=== PATIENT | female | born 1930 | race Caucasian/White ===

== ENCOUNTER 2016-09-16 18:57 | Inpatient (IN) | payer MEDICARE, OTHER ==
[~2016-09-16] VITALS: Ht 160 cm; Wt 43.6 kg
[~2016-09-16 18:57] MED LIST: DICLOFENAC 50MG50 MG PO; PYRIDOSTIGMINE60 MG PO
[2016-09-16 18:59] VITALS: BP 135/86
--- NOTE | 2016-09-16 19:09 | Emergency Room Report ---
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 N Clinical Suspician of Infection? N Mental Status: 1 - Regular (Normal Baseline) Sepsis Risk:Low Sepsis Risk Have you (or family members/close friends) recently traveled outside the [place]? N If Yes, where/when: Have you had exposure to infectious disease within the past month? TB? Other? Specify: Source patient, RN notes reviewed, family, old records Exam Limitations no limitations Comment This is an 86-year-old female who presents to the emergency department for further evaluation of RIGHT hip pain. She was seen in the ED earlier today after a mechanical ground-level fall with an x-ray of the pelvis and RIGHT hip. X-ray initially appeared negative per my read, but was read by radiology as possible subcapital femoral neck fracture and radiologist recommended CT for further evaluation. Patient was called back and presents here for CT scan. Patient continues to complain of RIGHT hip pain, but has been ambulatory. ALLERGIES Coded Allergies: No Known Allergies (09/16/16) Home Medications Reported Medications Pyridostigmine [place] (Pyridostigmine) 60 MG PO TID DICLOFENAC SODIUM (Diclofenac 50MG) 50 MG PO PRN PRN NEEDED WEEKLY (Gray Sawyer MD) History Medical History General CAD? No Angina: No MA: Yes Hypertension? Yes Hyperlipidemia? Yes CHF? No DVT? No PE? No COPD? No Asthma? No Anemia? No GERD? No Gastric ulcers? No GI Bleed? No Hernia? No Thyroid Problems? No Hypothyroidism? No CVA? No Seizures? No Diabetes? No More? Yes Additional hx: MYASTHENIA GRAVIS Immunization Hx Ped.Immunizations UTD Yes DT/Tetanus 5-10 Years Ago Surgical Hx Previous Surgery? LEFT hip replacement Social History Smoking Hx Smoker: Never Smoker Tobacco: No Type N/A Are you/the child exposed to second-hand smoke: No (Gray Sawyer MD) Review of Systems All Other Systems Reviewed and Negative (Gray Sawyer MD) Physical Exam Vital Signs Vital Signs Date Time Temp Pulse Resp B/P Pulse O2 O2 Flow FiO2 Ox Delivery Rate 09/16 2013 79 16 136/65 97 09/16 1858 98.0 77 18 135/86 98 General Appearance normal appearance, WD/WN Neck normal inspection, non-tender, supple, full range of motion Respiratory Status Yes: chest symmetrical, non tender chest. No: respiratory distress. Lung Sounds bilateral: normal breath sounds, lungs clear. Cardiovascular normal exam, regular rate/rhythm, no peripheral edema, normal peripheral pulses Peripheral Pulses Pulses normal Yes Gastrointestinal normal bowel sounds, normal exam, non tender Back normal inspection, no CVA tenderness, no vertebral tenderness Extremities normal inspection, RLE: painful range of motion at the RIGHT hip, mild tenderness on palpation, sensation intact distally with 2+ DP and PT pulses Neurologic alert, no motor/sensory deficits, oriented x 3 Skin intact, normal color, warm/dry (Silverio MORRIS [place]) Medical Decision Making LABS/Meds/Orders Pt receiving controlled substance in ED? No Results/Orders Current Medication Orders Sig/Octavia Start time Last Medication Dose Route Stop Time Status Admin Sodium Chloride 10 ML PRN PRN 09/16 2044 AC IV 09/17 2037 Orders Procedure Date/time Status DIET-NOTHING BY MOUTH 09/17 B Active Decision to admit 09/17 2039 Active ELECTROCARDIOGRAM REQUEST 09/16 2038 Active CHEST-PORTABLE 09/16 2038 Active IV SALINE LOCK 09/16 2038 Active URINALYSIS/COMPLETE 09/16 2038 Active PROTHROMBIN TIME 09/16 2038 Complete COMPLETE METABOLIC PANEL 09/16 2038 Complete CBC WITH AUTO DIFF 09/16 2038 Complete FOREARM-RT 09/[address] PELVIS W/O CONTRAST 09/[address] ABD/PELVIS REQ 09/16 1858 Complete XRAY/CT/US XRAY/CT/US XRAY forearm XR interpretation by reviewed by me Xray Results no fracture seen (Silverio MORRIS [place]) XRAY/CT/US XRAY/CT/US CT hip CT interpretation by discussed w/radiologist Time results known: 2033 CT Results abnormal (see report) (Tere MORRIS,Antonio Andre) Departure Departure Disposition Still a Patient ED Critical Care Critical Care No Comments Patient later complains of forearm pain while in CT scan so forearm x-rays obtained and does not show any acute fracture per my read. She was complaining of mid to proximal forearm pain but there are no obvious fractures on the x-ray per my read, radiology over read pending. CT scan of the pelvis is obtained without contrast and read is pending. Patient care transferred to Dr. Carranza at 1999. (Gray Sawyer MD) Departure Time of Disposition 2033 Clinical Impression Primary Impression: Right hip pain Secondary Impressions: Hip fracture, right Qualifiers: Encounter type: initial encounter Fracture type: closed Qualified Code: S72.001A - Fracture of unspecified part of neck of right femur, initial encounter for closed fracture Myasthenia gravis Right forearm pain Condition STABLE Referrals Wai Barrientos MD discussed with dr barrientos (Antonio Carranza MD) at 1954 at 2139
[2016-09-16 21:15] LABS: HEMOGLOBIN 11.6 g/dL (12.2-16.2); LYMPH # 1.2 K/mm3 (0.7-4.5); LYMPH % 20.3 % (10-50.0)
--- NOTE | 2016-09-16 22:03 | PHARMACY CLINIC NOTE ---
See Addendum Patient Demographics Patient Demographics Admission date: 09/16/16 Date: 09/16/16 Time: 2201 Allergies Coded Allergies: No Known Allergies (09/16/16) HEIGHT- FT: 5 IN: 3.00 K.164 VTE General Information Labs: Laboratory Tests 09/16 2105 Coagulation PT (9.4 - 11.8 SECONDS) 10.7 INR (0.9 - 1.1) 1.00 Hematology Hgb (12.2 - 16.2 g/dL) 11.6 L Hct (37.0 - 47.0 %) 35.1 L Plt Count (142 - 424 K/mm3) 217 Disclaimer The following section includes nursing documentation that has been pulled in for pharmacy review. Clinical trial participant? No VTE prophylaxis [id number] VTE prophylaxis ordered? Yes Type of prophylaxis/treatment: GARCÍA at 2203
--- NOTE | 2016-09-16 23:00 | RADIOLOGY REPORT PS360 ---
CT PELVIS W/O CONTRAST Ordering Physician: Wai South MD Patient Age: 86 years: Female HISTORY: RIGHT HIP PAIN AFTER FALL TECHNIQUE: Helical CT scanning performed through the pelvis, right hip. From the axial acquisitions coronal and sagittal reconstruction images performed on CT workstation. Findings [facility] report seems to equivocate, but I believe there is a acute Impacted subcapital right femoral neck fracture present. On close inspection we see mild cortical disruption cortex on several images. Posterior Cortex seen disruption on axial image 74.. On coronal image 42 there seems to be disruption of the medial cortex. Disruption lateral cortex with overhanging margin is seen on several images. These features support acute fracture... This does require correlation with history. A subacute or older fracture with healing entertained but much less likely... If there is question based on clinical history then MR could additionally confirm acute fracture , if need be. The Mild sclerosis along this subtle impacted fracture line is also evident nicely seen on some of images.. . joint effusion also noted and associated. Moderately Pronounced Arthritic changes right hip noted. Marked narrowing at posterior right hip joint space reflecting advanced arthritic changes. Hypertrophic marginal osteophytes most pronounced along the posterior acetabulum, & most pronounced posteriorly but also note hypertrophic acetabular rim extending superiorly & as well as anterior. It There is some mild dystrophic bone anterior to the femoral head at the anterior joint joint capsule on axial image 69-66. . On also note there is posterior fusion at L5/S1 with laminectomy. Marked disc space narrowing at L4/5. Partially imaged most superior slicesat L2/3 disc level shows pronounced lateral offset of L2 vertebra and posterior elements relative to L3. If desire further evaluation CT, or MRI lumbar spine or to further evaluate features at L 2/3 level at some point a follow-up. ... Diffuse demineralization osseous structures... Sacrum osteoporotic but with no fracture evident . A small collection of stones posterior gallbladder is still noted. Minimal cholelithiasis. IMPRESSION: 1. Impacted subcapital right femoral neck fracture... Favor Acute (rather than subacute.) 2. Right hip joint effusion 3. Moderately pronounced Degenerative arthritic changes right hip as in text 4. Posterior fusion L5/S1. Prominent degenerative arthritic changes lower L-spine . With this there seems to be pronounced right lateral offset of L2 relative to L3. 5 incidental minimal cholelithiasis
[2016-09-16 23:16] VITALS: BP 150/79
[2016-09-17] VITALS (15 sets, daily range): BP systolic 143–194; BP diastolic 71–99
[2016-09-17 07:12] LABS: HEMOGLOBIN 12.1 g/dL (12.2-16.2); LYMPH # 0.9 K/mm3 (0.7-4.5); LYMPH % 19.6 % (10-50.0)
--- NOTE | 2016-09-17 07:20 | RADIOLOGY REPORT PS360 ---
CHEST-PORTABLE HISTORY: Pain following injury fall ORDERING PHYSICIAN: Wai South MD PATIENT AGE: 86 years COMPARISON: None available FINDINGS: The cardiomediastinal silhouette and pulmonary vascularity are within normal limits. No lobar consolidation or collapse is evident. Calcified granulomas noted in the right lower lungs on. No evidence of pneumothorax. Skin fold artifact noted on the left.. No acute bony abnormalities. IMPRESSION: No acute finding
--- NOTE | 2016-09-17 07:23 | RADIOLOGY REPORT PS360 ---
FOREARM-RT HISTORY: Pain following injury PT FELL, RIGHT PROXIMAL FOREARM PAIN ORDERING PHYSICIAN: Gray Sawyer MD PATIENT AGE: 86 years COMPARISON: None FINDINGS: No definite fracture or dislocation is evident. There is some cortical irregularity at the radial head and may be related to an osteophyte. Elbow films may confirm if this is a clinical area of concern. There is also some cortical lobulation of the distal aspect of the radius which could be due to an old injury. Please correlate clinically. There is chondrocalcinosis of the triangular fibrocartilage. IMPRESSION: No definite acute finding. Please see above for detail
--- NOTE | 2016-09-17 07:31 | HISTORY AND PHYSICAL REPORT ---
Demographics: Admit date: 09/16/16 Chief complaint: RIGHT hip pain PRIMARY DIAGNOSIS: RIGHT HIP PAIN Allergies: Coded Allergies: No Known Allergies (09/16/16) History of present illness: History of present illness: 86-year-old female presented to the emergency department yesterday after a fall at home where she landed on her RIGHT side. Patient complained of RIGHT hip pain and RIGHT shoulder pain. She came to the emergency department and was evaluated. Initial x-rays were thought to be normal and patient was discharged home once she was able to ambulate with use of walker. Patient has chronic RIGHT shoulder problems from previous rotator cuff injury. On radiologist's review of the hip films it was felt there was a subcapital hip fracture and the patient was called back to the emergency department for repeat films with a CT scan of the RIGHT hip. CT scan of the RIGHT hip was read by the overnight teleradiology service as a possible fracture. Patient was admitted for orthopedic consult. This morning she continues to have RIGHT hip pain. The [facility] radiologist has are he reviewed her films this morning and is interpreted her CT scan confirming a fracture in the RIGHT hip. Past medical history is significant for previous LEFT hip fracture which she had repaired. Patient also has myasthenia gravis. She has had an episode of respiratory failure from her myasthenia gravis. She takes Pyridostigmine 60 mg once daily which is kept her myasthenia under excellent control. Past medical history: Family HX Family Hx Insignificant No Diabetes Yes CAD No Hypertension Yes Hyperlipidemia No Cancer No TB No Immunization HX Ped.Immunizations UTD Yes DT/Tetanus 5-10 Years Ago Pneumonia Received In Past TB Test in last year No General CAD? No Angina: No CO: Yes Hypertension? Yes Hyperlipidemia? Yes CHF? No DVT? No PE? No COPD? No Asthma? No Anemia? No GERD? No Gastric ulcers? No GI Bleed? No Hernia? No Thyroid Problems? No Hypothyroidism? No CVA? No Seizures? No Diabetes? No More? Yes Additional hx: MYASTHENIA GRAVIS Past Surgical HX Previous Surgery?Y LEFT HIP FX REPAIR COLON RESECTION HERNIA REPAIR HYSTERECTOMY Cataract(s) SPINAL FUSION SLEEP APNEA SURGERY Current home meds: Reported Medications Pyridostigmine [place] (Pyridostigmine) 60 MG PO TID DICLOFENAC SODIUM (Diclofenac 50MG) 50 MG PO PRN PRN NEEDED WEEKLY Social Hx: Smoking HX Tobacco No Type N/A Are you/the child exposed to second-hand smoke: No Alcohol Alcohol: No Hx of Drug Use Drug Use? No Patien't marital status is Patient's support system is good Review of systems: Constitutional no symptoms reported. Respiratory no symptoms reported. Cardiovascular no symptoms reported Gastrointestinal/Abdominal no symptoms reported Genitourinary no symptoms reported. Musculoskeletal see HPI. Neurological Yes: see HPI. Exam: Lab data for last 24 hours: Laboratory Tests 09/17/16 0630: Sodium 144, Potassium 3.9, Chloride 111 H, Carbon Dioxide 28, BUN 22 H, Creatinine 0.7, Estimated Creat Clear 40 L, Estimated GFR (MDRD) 80, Glucose 92 , Calcium 8.6, WBC 4.3 L, RBC 3.90 L, Hgb 12.1 L, Hct 36.4 L, MCV 93.5, RDW 14.2, Plt Count 212, MPV 6.4 L, Gran % 69.8, Gran # 3.0, Lymphocytes % 19.6, Monocytes % 6.2, Eosinophils % 3.6, Basophils % 0.8, Lymphocytes # 0.9, Monocytes # 0.3, Eosinophils # 0.2, Basophils # 0.0, PUBS MCHC 33.1, MCH 30.9 09/16/16 2106: Sodium 143, Potassium 4.1, Chloride 109 H, Carbon Dioxide 28, BUN 32 H, Creatinine 0.9, Estimated Creat Clear 38 L, Estimated GFR (MDRD) 60, Glucose 143 H, Calcium 8.8, Total Bilirubin 0.5, AST 20, ALT 37, Alkaline Phosphatase 74, Total Protein 6.7, Albumin 3.4, Globulin 3.3 H, Albumin/Globulin Ratio 1.0 L, PT 10.7, INR 1.00, WBC 6.0, RBC 3.79 L, Hgb 11.6 L, Hct 35.1 L, MCV 92.7, RDW 14.2, Plt Count 217, MPV 6.6 L, Gran % 72.4, Gran # 4.4, Lymphocytes % 20.3 , Monocytes % 4.9, Eosinophils % 1.8, Basophils % 0.7, Lymphocytes # 1.2, Monocytes # 0.3, Eosinophils # 0.1, Basophils # 0.0, PUBS MCHC 33.1, MCH 30.6 Admission vital signs: 1ST Vital Signs Result Date Time Pulse Ox 98 09/16 1858 B/P 135/86 09/16 1858 Temp 98.0 09/16 1858 Pulse 77 09/16 1858 Resp 18 09/16 1858 O2 Delivery ROOM AIR 09/16 2316 Exam General appearance: alert, active, awake Cardiovascular: regular rate & rhythm, no murmur Respiratory: clear to auscultation, good air movement ABD: soft, no tenderness Extremities: RIGHT leg is neurovascularly intact Plan: Problem List 1. Hip fracture, right 2. Myasthenia gravis Plan: Await orthopedic consultation. Should patient need surgery they can proceed at orthopedists convenience. at 0731
--- NOTE | 2016-09-17 10:18 | CONSULT NOTE ---
Consultation findings: Referring physician: Dr. South Date of examination: 09/17/16 Time of examination: 0900 Exam findings: Chief complaint: RIGHT hip pain History of present illness: Patient is a pleasant 86-year-old female admitted from the ER yesterday evening with history of injury to her RIGHT hip. She says she fell down onto her RIGHT side while trying to open a door at home yesterday. Following the fall she complained of pain in her RIGHT hip and RIGHT shoulder. When she presented to the ER yesterday, the initial x-rays were thought to be normal and patient was discharged home once she was able to ambulate with a walker. On radiologist's review of the hip films it was felt there was a subcapital hip fracture and the patient was called back to the emergency department for a CT scan of the RIGHT hip. The CT scan did confirm a definite acute valgus impacted fracture neck of her RIGHT femur. She was then admitted for further management. This morning she is still complaining of pain in her RIGHT hip especially with any attempted movements. She is also complaining of some RIGHT shoulder pain. During examination today her [id number] who works as a dietitian at the hospital was with her. 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 She uses a walker and mainly mobilizes indoors. She has history of chronic RIGHT shoulder pain secondary to rotator cuff tear and arthritis. She previously had a LEFT hip fracture and had a hemiarthroplasty about 14 or 15 years ago at an outside facility. She also had a low back surgery about 6 years ago. No history of any other injuries. No history of any loss of consciousness, head injury, neck pain, chest pain and shortness of breath. Past medical history is significant for myasthenia gravis. She has had an episode of respiratory failure from her myasthenia gravis. She takes Pyridostigmine 60 mg once daily which is kept her myasthenia under excellent control. Past medical history: Family HX Family Hx Insignificant No Diabetes Yes CAD No Hypertension Yes Hyperlipidemia No Cancer No TB No Immunization HX Ped.Immunizations UTD Yes DT/Tetanus 5-10 Years Ago Pneumonia Received In Past TB Test in last year No General CAD? No Angina: No ID: Yes Hypertension? Yes Hyperlipidemia? Yes CHF? No DVT? No PE? No COPD? No Asthma? No Anemia? No GERD? No Gastric ulcers? No GI Bleed? No Hernia? No Thyroid Problems? No Hypothyroidism? No CVA? No Seizures? No Diabetes? No More? Yes Additional hx: MYASTHENIA GRAVIS Past Surgical HX Previous Surgery?Y LEFT HIP FX REPAIR COLON RESECTION HERNIA REPAIR HYSTERECTOMY Cataract(s) SPINAL FUSION SLEEP APNEA SURGERY Current home meds: Reported Medications Pyridostigmine [place] (Pyridostigmine) 60 MG PO TID DICLOFENAC SODIUM (Diclofenac 50MG) 50 MG PO PRN PRN NEEDED WEEKLY Social Hx: Smoking HX Tobacco No Type N/A Are you/the child exposed to second-hand smoke: No Alcohol Alcohol: No Hx of Drug Use Drug Use? No Patien't marital status is Patient's support system is good Review of systems: Constitutional no symptoms reported. Respiratory no symptoms reported. Cardiovascular no symptoms reported Gastrointestinal/Abdominal no symptoms reported Genitourinary no symptoms reported. Musculoskeletal see HPI. Neurological Yes: see HPI. Exam: Lab data for last 24 hours: Laboratory Tests 09/17/16 0630: Sodium 144, Potassium 3.9, Chloride 111 H, Carbon Dioxide 28, BUN 22 H, Creatinine 0.7, Estimated Creat Clear 40 L, Estimated GFR (MDRD) 80, Glucose 92 , Calcium 8.6, WBC 4.3 L, RBC 3.90 L, Hgb 12.1 L, Hct 36.4 L, MCV 93.5, RDW 14.2, Plt Count 212, MPV 6.4 L, Gran % 69.8, Gran # 3.0, Lymphocytes % 19.6, Monocytes % 6.2, Eosinophils % 3.6, Basophils % 0.8, Lymphocytes # 0.9, Monocytes # 0.3, Eosinophils # 0.2, Basophils # 0.0, PUBS MCHC 33.1, MCH 30.9 09/16/16 2106: Sodium 143, Potassium 4.1, Chloride 109 H, Carbon Dioxide 28, BUN 32 H, Creatinine 0.9, Estimated Creat Clear 38 L, Estimated GFR (MDRD) 60, Glucose 143 H, Calcium 8.8, Total Bilirubin 0.5, AST 20, ALT 37, Alkaline Phosphatase 74, Total Protein 6.7, Albumin 3.4, Globulin 3.3 H, Albumin/Globulin Ratio 1.0 L, PT 10.7, INR 1.00, WBC 6.0, RBC 3.79 L, Hgb 11.6 L, Hct 35.1 L, MCV 92.7, RDW 14.2, Plt Count 217, MPV 6.6 L, Gran % 72.4, Gran # 4.4, Lymphocytes % 20.3 , Monocytes % 4.9, Eosinophils % 1.8, Basophils % 0.7, Lymphocytes # 1.2, Monocytes # 0.3, Eosinophils # 0.1, Basophils # 0.0, PUBS MCHC 33.1, MCH 30.6 Admission vital signs: 1ST Vital Signs Result Date Time Pulse Ox 98 09/16 1858 B/P 135/86 09/16 1858 Temp 98.0 09/16 1858 Pulse 77 09/16 1858 Resp 18 09/16 1858 O2 Delivery ROOM AIR 09/17 2315 Exam General appearance: alert, active, awake Cardiovascular: regular rate & rhythm, no murmur Respiratory: clear to auscultation, good air movement ABD: soft, no tenderness, no organomegaly, bowel sounds heard over 4 quadrants Neuro: Alert and oriented 3, cranial nerves II through XII grossly intact Skin: No rashes or lesions noted Extremities: On examination of her lower extremities, the limb lengths are equal. The alignment is neutral. On examination of the RIGHT hip the skin is intact. No lacerations, abrasions, rashes or lesions noted. She is tender over the RIGHT hip both anteriorly and posteriorly. Any attempted movements of the RIGHT hip are painful. Thigh and calf are soft and nontender. Dorsalis pedis and posterior tibial pulses are palpable 2+ bilaterally. Sensation is grossly intact. She has good range of knee, foot, ankle and toe movements. Examination of her LEFT hip reveals a well-healed surgical scar over the lateral aspect. On examination of her RIGHT shoulder, she has periscapular muscle atrophy, tenderness over the glenohumeral joint, and decreased range of motion of shoulder movements and crepitation. Distal neurovascular status is intact. Imaging: X-rays of her pelvis and RIGHT hip and CT scan of the pelvis were reviewed along with the radiologist's report. The images show valgus impacted subcapital femoral neck fracture on the RIGHT side. The hip joint space is slightly narrowed with mild degenerative changes. No other acute changes noted. There is a degree of osteopenia noted. No evidence of any metastatic lesions on the x-ray. X-rays of her RIGHT shoulder revealed degenerative changes consistent with rotator cuff arthropathy. No acute changes noted. X-ray of her RIGHT forearm including elbow and wrist joints shows no acute changes. There is evidence of degenerative changes in the wrist and elbow joints. Impression: 1. Valgus impacted subcapital femoral neck fracture, RIGHT hip 2. Myasthenia gravis Recommendations: I reviewed the clinical and x-ray findings with the patient and her daughter-in- law who was with her in the room. I have discussed the diagnosis and management options in detail including both nonsurgical and surgical. We discussed the surgical options in the form of either cannulated hip screw fixation or bipolar hemiarthroplasty. We discussed the pros and cons of both these options. Given the fracture appears to be stable with valgus impaction and she has fairly good range of motion hip movements, I have recommended a cannulated hip screw fixation. We discussed the possibility of nonunion, avascular necrosis, loss of fixation on the likely need for further surgery in future if we elect this option. I explained the procedure, risks and benefits, alternatives and the expected postoperative course. I explained to the patient and her boyfriend with drawings/copies of the x-ray images of the fracture and the proposed surgical procedure. The complications discussed include but are not limited to infection, injury to nerves and blood vessels, DVT and PE, femur fracture, limb length inequality, implant failure, nonunion, malunion, avascular necrosis, loss of fixation, heterotopic ossification, incomplete relief of pain, incomplete return of function or motion, likely need for further surgery in future including conversion to a luis-or total hip arthroplasty, anesthetic/medical complications including heart attack, stroke, transfusion reactions and even . We discussed how any of these events can be devastating. We have discussed nonsurgical alternatives as well which would involve likely prolonged bed rest and associated complications with it. I have told her that the usual standard of care throughout the country for these sort of fractures is surgery and these are very rarely treated nonoperatively. We also discussed the postoperative course including the rehab and physical therapy required. She lives with her daughter- in-law and may likely need to go to a residential facility for rehab after surgery. All their questions were answered and they verbalized a good understanding. We will obtain a preoperative anesthetic evaluation. The limb was appropriately marked and initialed by me. I am planning to take her for surgery at the earliest opportunity today. Thank you for the opportunity to take part in the care of this very pleasant patient.
[2016-09-17 10:47] LABS: URINE BILIRUBIN - DIPSTICK NEGATIVE (NEG); URINE BLOOD TRACE-INTACT (NEG)
--- NOTE | 2016-09-17 16:48 | Operative Note ---
Procedure/Operative Record Date of Procedure: 09/17/16 Referring physician: Dr. South Pre-op diagnosis: Closed, valgus impacted subcapital fracture neck of femur, RIGHT hip Post-op diagnosis: Closed, valgus impacted subcapital fracture neck of femur, RIGHT hip Procedure performed: Cannulated hip screw fixation, RIGHT hip Surgeon: BERTIN DIA MD Desizing Pad Operator(s): Alba Sauceda Anesthesia: General Indications: Patient is an 86-year-old female who sustained a closed valgus impacted fracture neck of her RIGHT femur following a mechanical fall. Internal fixation with cannulated hip screws was indicated to relieve pain and restore function. Findings: Closed nondisplaced valgus impacted femoral neck fracture RIGHT hip as noted on the preoperative hip x-rays. The proximal femur bone quality was reasonably good. Description of procedure: On the day of the procedure the patient was met on the floor, and a physical examination was performed. The operating side and site were marked and initialed by me. I reviewed the clinical and x-ray findings with the patient and her family. I have discussed the diagnosis and management options in detail including both nonsurgical and surgical. We discussed the surgical options in the form of either cannulated hip screw fixation or hemiarthroplasty. We discussed the pros and cons of both the procedures. Given that the fracture appears to be stable with valgus impaction and she has fairly good range of hip movements, I have recommended a cannulated hip screw fixation. We discussed the possibility of nonunion, avascular necrosis, loss of fixation and the likely need for further surgery in future if we elect this option. I explained the procedure, risks and benefits, alternatives and the expected postoperative course. I explained with drawings and x-ray pictures of the fracture and the proposed surgical procedure. The complications discussed include but are not limited to infection, injury to nerves and blood vessels, DVT and PE, femur fracture, limb length inequality, implant failure, nonunion, malunion, avascular necrosis, loss of fixation, heterotopic ossification, incomplete relief of pain, incomplete return of function or motion, likely need for further surgery in future including conversion to a luis-or total hip arthroplasty, anesthetic/ medical complications including heart attack, stroke, transfusion reactions and even . We discussed how any of these events can be devastating. We have discussed nonsurgical alternatives as well. We also discussed the postoperative course including the rehab and physical therapy required. All their questions were answered and they verbalized a good understanding. The consent form was reviewed and signed. Following appropriate preoperative workup and medical clearance, patient was brought to the operating room and a general anesthesia was administered. She was then positioned supine on the fracture table and all the bony prominences were appropriately padded. The RIGHT foot was secured in the footplate and the footplate was attached to the fracture table. The LEFT leg was placed out of the way in a leg nelson. Under fluoroscopic guidance the fracture was visualized and noted to be still holding good in valgus impaction with no change in position compared to the preoperative x-rays. The RIGHT hip and thigh were then prepped and draped in the usual sterile fashion. Administration of prophylactic antibiotics was confirmed with the anesthetic team (2 g of IV Ancef was administered). A preprocedure timeout was performed as per the hospital protocol. After marking the level of the greater trochanter on the skin and the proposed screw trajectory under fluoroscopy, a lateral skin incision was made for the approach to the proximal femur. The dissection was then carried through subcutaneous tissue. The fascia octavio and vastus lateralis were split in line with the skin incision. This provided access to the lateral aspect of the proximal femur. Under fluoroscopic guidance a guidewire was placed starting just above the level of the lesser trochanter and directed into the femoral head. After confirming satisfactory position of this guidewire under fluoroscopic imaging, two more parallel guidewires were placed proximally in an inverted triangular fashion using the multi-guidewire placing tool. After confirming satisfactory placement of all 3 guidewires in both AP and lateral planes, the lengths were measured and appropriate screws were selected. The outer cortex was drilled over the guidewires. Then three 6.5 mm (16 mm thread) cannulated screws (2 of them with washers) were placed over the guidewires and advanced into the femoral head to the appropriate level. The guidewires were then removed and fluoroscopic images were obtained showing satisfactory and stable fixation of the fracture. Fluoroscopic images were stored digitally. The wound was washed out with normal saline and hemostasis was obtained with the diathermy cautery. The wound was then closed in layers with the 2-0 Vicryl, 2-0 Vicryl and subcuticular 4-0 Monocryl sutures, Dermabond and Steri-Strips to the skin. 20 mL of 0.5 percent Marcaine was injected into the skin and subcutaneous tissue around the incision for postoperative pain relief. Sterile dressings were applied. The RIGHT foot was taken out of the foot nelson and the LEFT leg out of the leg nelson and placed on the table extension. The limb lengths were noted to be equal and there was no rotational malalignment. Dorsalis pedis and posterior tibial pulses were 2+ on both sides. At the end of the procedure, swab, needle and instrument counts were correct according to the scrub team. Patient was then transferred onto the bed. She was then transported to the PACU in a stable condition. Patient tolerated the procedure well and there were no immediate complications. Portable x-rays of her RIGHT hip AP and cross-table lateral views were obtained in the PACU and were noted to be satisfactory. Postoperatively she will have 2 further doses of prophylactic antibiotics, DVT prophylaxis as per protocol and IV and oral analgesia as needed. Medical management as per Dr. South's team. She can be mobilized on the first postoperative day with a frame, weight bearing on the RIGHT side as tolerated. EBL (ml): 50 Implant: Synthes 6.5 mm cannulated hip screws 3 (2 with washers and one without a washer )- 85 mm, 85 mm and 85 mm. Complications: None Specimens: None
--- NOTE | 2016-09-17 17:01 | RADIOLOGY REPORT PS360 ---
HIP RT 2-3V W/PELVIS IF PERFOR HISTORY: Follow-up fracture/ORIF S/P CANNULATED SCREW FIXATION RIGHT HIP ORDERING PHYSICIAN: Wai South MD PATIENT AGE: 86 years COMPARISON: 09/16/2016 FINDINGS: 3 screws have been placed into the right femoral neck from the base of the greater trochanter to the femoral head stabilizing the femoral neck fracture with good alignment with minimal impaction of the fracture fragments. Postsurgical gas is noted. IMPRESSION: Status post ORIF right femoral neck fracture with good alignment
[2016-09-18] VITALS (8 sets, daily range): BP systolic 105–150; BP diastolic 51–74
[2016-09-18 06:32] LABS: HEMOGLOBIN 12.2 g/dL (12.2-16.2); LYMPH # 0.6 K/mm3 (0.7-4.5); LYMPH % 10.3 % (10-50.0)
--- NOTE | 2016-09-18 07:24 | ACUTE CARE PROGRESS NOTE (QUA) ---
Progress Notes Subjective Date 09/18/16 Time 0721 Note Patient had surgery yesterday afternoon. She's had some bouts of nausea overnight and currently this morning during the interview. Her pain is tolerable and is responded to morphine when it escalates. She does not appear ill. Lungs are clear to auscultation. Heart has regular rate and rhythm. Abdomen is soft and nontender. Continue postoperative care. Give when necessary Phenergan for nausea and morphine for pain. Care management we'll talk with family about preferred nursing home facilities Objective Findings Last VS-Temp:98.0 B/P:110/59 Pulse:74 Resp:18 SaO2:92 ROOM AIR Last weight lbs:96 oz:2 K.602 Method:Bed Scales Assessment/Plan Problem List 1. Hip fracture, right Qualifiers: Encounter type: initial encounter Fracture type: closed Qualified Code: S72.001A - Fracture of unspecified part of neck of right femur, initial encounter for closed fracture 2. Myasthenia gravis Patient condition Stable Plan: continue current care This inpt stay is expected to cross 2 MNs from start of care Yes at 0723
--- NOTE | 2016-09-18 08:09 | RADIOLOGY REPORT PS360 ---
HIP RT 2-3V W/PELVIS IF PERFOR HISTORY: RIGHT HIP PINNING ORDERING PHYSICIAN: Wai South MD PATIENT AGE: 86 years COMPARISON: None FINDINGS: Status post placement of 3 pins into the right hip stabilizing a femoral neck fracture with minimal lateral angulation of the distal fracture fragment and no significant displacement. IMPRESSION: Status post ORIF right hip
--- NOTE | 2016-09-18 15:52 | ACUTE CARE PROGRESS NOTE ---
Progress note Date: 09/18/16 Assessment: Mariah Del Angel is an 86-year-old female, status post cannulated screw fixation RIGHT hip post op day # 1. She is sitting up in the bed and eating her lunch. She says she is doing well and her pain is well controlled with medication. She mobilized with a walker earlier with the help of physical therapist and it went well. She says she she had nausea clear but this has improved with medication and she is able to irrigate and drinking well. No history of any fevers, chills or rigors. No history of any nausea, vomiting, chest pain or SOB. The nursing staff reports no concerns about her progress. She is being evaluated for placement in a halfway facility for rehab. Her [id number] was with her in the room. Objective: I reviewed her vital signs, lab results, medication, medical progress note and also discussed with the nursing staff. Exam General appearance: alert, active, awake, no acute distress Cardiovascular: normal sinus rhythm, regular rate & rhythm Respiratory: aerating well, clear to auscultation ABD: normal bowel sounds, soft, no tenderness Neuro: alert, awake, speech clear On examination of her RIGHT lower extremity, the limb lengths are equal. The alignment is neutral. The dressings over the RIGHT hip are dry and intact. Bilateral thigh and calf are soft and nontender. Distal neurovascular status is intact. No clinical evidence of DVT. She is able to actively move the hip, knee, foot and ankle. Impression: 1. Hip fracture, right Qualifiers Encounter type: initial encounter Fracture type: closed Qualified Code: S72.001A - Fracture of unspecified part of neck of right femur, initial encounter for closed fracture 2. Myasthenia gravis Plan: I reviewed the surgical procedure, findings and progress with the patient and her [id number]. Discontinue IV fluids when eating and drinking well. Continue mobilization weightbearing as tolerated on the RIGHT side with the help of a walker. Continue PT/OT, pain management with narcotic analgesics as needed. Continue DVT prophylaxis for a total of 5 weeks postop. She can be transferred to SNF when appropriate from medical point of view. Follow-up in my office in 2 weeks' time. Medical management as per Dr. South's team. at [phone]
--- NOTE | 2016-09-18 15:52 | ACUTE CARE PROGRESS NOTE ---
Progress note Date: 09/18/16 Assessment: Mariah Del Angel is an 86-year-old female, status post cannulated screw fixation RIGHT hip post op day # 1. She is sitting up in the bed and eating her lunch. She says she is doing well and her pain is well controlled with medication. She mobilized with a walker earlier with the help of physical therapist and it went well. She says she she had nausea clear but this has improved with medication and she is able to irrigate and drinking well. No history of any fevers, chills or rigors. No history of any nausea, vomiting, chest pain or SOB. The nursing staff reports no concerns about her progress. She is being evaluated for [facility] in a [facility] for [facility]. Her jluxgnvi-[id number] was with her in the room. Objective: I reviewed her vital signs, lab results, medication, medical progress note and also discussed with the nursing staff. Exam General appearance: alert, active, awake, no acute distress Cardiovascular: normal sinus rhythm, regular rate & rhythm Respiratory: aerating well, clear to auscultation ABD: normal bowel sounds, soft, no tenderness Neuro: alert, awake, speech clear On examination of her RIGHT lower extremity, the limb lengths are equal. The alignment is neutral. The dressings over the RIGHT hip are dry and intact. Bilateral thigh and calf are soft and nontender. Distal neurovascular status is intact. No clinical evidence of DVT. She is able to actively move the hip, knee, foot and ankle. Impression: 1. Hip fracture, right Qualifiers Encounter type: initial encounter Fracture type: closed Qualified Code: S72.001A - Fracture of unspecified part of neck of right femur, initial encounter for closed fracture 2. Myasthenia gravis Plan: I reviewed the surgical procedure, findings and progress with the patient and her [id number]. Discontinue IV fluids when eating and drinking well. Continue mobilization weightbearing as tolerated on the RIGHT side with the help of a walker. Continue PT/OT, pain management with narcotic analgesics as needed. Continue DVT prophylaxis for a total of 5 weeks postop. She can be transferred to SNF when appropriate from medical point of view. Follow-up in my office in 2 weeks' time. Medical management as per Dr. South's team. at [phone]
[2016-09-19] VITALS (8 sets, daily range): BP systolic 93–121; BP diastolic 45–71
--- NOTE | 2016-09-19 07:18 | ACUTE CARE PROGRESS NOTE (QUA) ---
Progress Notes Subjective Date 09/19/16 Time 0716 Note Patient complains of body wide itching this morning. Patient states it began last night and she was given some medication. By review of her medication list I believe this may have been her Phenergan. She has had this problem before, in April 2016 when she had a pain pump removed. She is in no distress. Skin examination reveals mild diffuse erythema over the arms legs and back. Objective Findings Last VS-Temp:98.0 B/P:121/52 Pulse:72 Resp:18 SaO2:99 ROOM AIR Last weight lbs:96 oz:2 K.602 Method:Bed Scales Assessment/Plan Problem List 1. Hip fracture, right Qualifiers: Encounter type: initial encounter Fracture type: closed Qualified Code: S72.001A - Fracture of unspecified part of neck of right femur, initial encounter for closed fracture 2. Myasthenia gravis Patient condition Stable Plan: continue current care This inpt stay is expected to cross 2 MNs from start of care Yes Comments: I suspect the itching may be from narcotics. She's been receiving both morphine and hydrocodone. Patient is receiving morphine in the past without problems. She does not recall any additional history at with [employer]. I'm going to discontinue her morphine. PT will work with the patient again today. Anticipate discharge to [facility] tomorrow at 0718
--- NOTE | 2016-09-19 13:12 | ACUTE CARE PROGRESS NOTE ---
Progress note Date: 09/19/16 Assessment: Mariah Del Angel is an 86-year-old female, status post cannulated screw fixation RIGHT hip post op day # 2. She is sitting out in a chair. Says she is doing well and her pain is well controlled with medication. She is mobilizing with a walker. No history of any fevers, chills or rigors. The nursing staff reports no concerns about her progress. Objective: I reviewed her vital signs, lab results, medication, medical progress note and also discussed with the nursing staff. Exam General appearance: alert, active, awake, no acute distress Cardiovascular: normal sinus rhythm, regular rate & rhythm Respiratory: aerating well, clear to auscultation ABD: normal bowel sounds, soft, no tenderness Neuro: alert, awake, speech clear On examination of her RIGHT lower extremity, the limb lengths are equal. The alignment is neutral. The dressings over the RIGHT hip are clean, dry and intact. The dressings were changed and the incision looks healthy. Bilateral thigh and calf are soft and nontender. Distal neurovascular status is intact. No clinical evidence of DVT. She is able to actively move the hip, knee, foot and ankle. Impression: 1. Hip fracture, right Qualifiers Encounter type: initial encounter Fracture type: closed Qualified Code: S72.001A - Fracture of unspecified part of neck of right femur, initial encounter for closed fracture 2. Myasthenia gravis Plan: She is doing well and progressing as the expected. Continue mobilization weightbearing as tolerated on the RIGHT side with the help of a walker. Continue PT/OT, pain management with narcotic analgesics as needed. Continue DVT prophylaxis for a total of 5 weeks postop. She can be transferred to SNF when appropriate from medical point of view. Follow-up in my office in 2 weeks' time. Medical management as per Dr. South's team.
[2016-09-20 04:28] VITALS: BP 113/46
[2016-09-20] MEDS ORDERED: DIPHENHIST25 MG PO (07:19)
[2016-09-20] MEDS ORDERED: ELIQUIS2.5 MG PO (07:20)
[2016-09-20] MEDS ORDERED: NORCO 325 MG-51 TAB PO (07:21)
--- NOTE | 2016-09-20 07:24 | ACUTE CARE PROGRESS NOTE (QUA) ---
Progress Notes Subjective Date 09/20/16 Time 0722 Note Patient complains of some RIGHT hip discomfort today. She didn't dissipate with therapy yesterday. She's been using the bedside commode. She still had itching yesterday but apparently did not ask for any Benadryl. She is in no distress. Lungs are clear to auscultation. Heart has a regular rate and rhythm. She is neurovascularly intact in the RIGHT leg. Patient be discharged to [facility] today. She will follow-up with Dr. Bae in 2 weeks. She will be prescribed Eliquis 2.5 mg twice a day for DVT prophylaxis. Objective Findings Last VS-Temp:98.0 B/P:113/46 Pulse:81 Resp:16 SaO2:100 ROOM AIR Last weight lbs:96 oz:2 K.602 Method:Bed Scales Assessment/Plan Problem List 1. Hip fracture, right Qualifiers: Encounter type: initial encounter Fracture type: closed Qualified Code: S72.001A - Fracture of unspecified part of neck of right femur, initial encounter for closed fracture 2. Myasthenia gravis Patient condition Improving Plan: continue current care This inpt stay is expected to cross 2 MNs from start of care Yes at 0724
--- NOTE | 2016-09-20 07:24 | Discharge Summary ---
Demographics Admit date: 09/16/16 Discharge date: 09/20/16 Discharge diagnoses Problem List 1. Hip fracture, right 2. Myasthenia gravis History of present illness History of present illness 86-year-old female presented to the emergency department yesterday after a fall at home where she landed on her RIGHT side. Patient complained of RIGHT hip pain and RIGHT shoulder pain. She came to the emergency department and was evaluated. Initial x-rays were thought to be normal and patient was discharged home once she was able to ambulate with use of walker. Patient has chronic RIGHT shoulder problems from previous rotator cuff injury. On radiologist's review of the hip films it was felt there was a subcapital hip fracture and the patient was called back to the emergency department for repeat films with a CT scan of the RIGHT hip. CT scan of the RIGHT hip was read by the overnight teleradiology service as a possible fracture. Patient was admitted for orthopedic consult. This morning she continues to have RIGHT hip pain. The [facility] radiologist has are he reviewed her films this morning and is interpreted her CT scan confirming a fracture in the RIGHT hip. Past medical history is significant for previous LEFT hip fracture which she had repaired. Patient also has myasthenia gravis. She has had an episode of respiratory failure from her myasthenia gravis. She takes Pyridostigmine 60 mg once daily which is kept her myasthenia under excellent control. Patient was admitted on the and on the underwent cannulated screw hip fixation. Postoperative course was uncomplicated. She did develop pruritus which I believe is from a combination of morphine and hydrocodone that was being used to control her pain. On the her morphine was discontinued in favor of a single agent. Postoperatively the rehabilitation team was mobilized. At discharge patient is weightbearing as tolerated with the use of a walker. Patient has myasthenia gravis and will typically take her pyridostigmine once daily. Instructions on the medication or 3 times a day and to reduce the risk of myasthenia flaring and causing problems postoperatively she was continued on her 3 times a day dosing. Rehab potential: Good Mental status: Average Prognosis: Good Medications Medications: Discharge meds are as noted. Follow up Follow up in office in: 2 WEEKS with: BERTIN DIA MD at [phone]
[2016-09-20 07:56] VITALS: BP 108/44
[2016-09-20 09:30] VITALS: BP 108/44
[2016-09-20 09:49] VITALS: BP 108/44
== END 2016-09-20 09:50 | DRG 482 ==
LOC: ER 18:57 → 2ND 20:39 → ER 20:39 → 2ND 23:24
PROVIDERS: Emergency Medicine; Orthopaedic Surgery
PROC: 0QH634Z Insertion of Internal Fixation Device into Right Upper Femur, Percutaneous Approach (ICD-10-PCS; principal; 2016-09-17 12:00)
DX: S72.011A Unspecified intracapsular fracture of right femur, initial encounter for closed fracture (principal); G70.00 Myasthenia gravis without (acute) exacerbation; I10 Essential (primary) hypertension; W19.XXXA Unspecified fall, initial encounter; Z91.81 History of falling
CPT/HCPCS: C1713; J2405

== ENCOUNTER → 2016-10-10 | Outpatient (CLI) | payer MEDICARE, OTHER ==
[~2016-10-10] MED LIST changes: +DIPHENHIST25 MG PO; +ELIQUIS2.5 MG PO; +NORCO 325 MG-51 TAB PO
--- NOTE | 2016-10-10 19:56 | RADIOLOGY REPORT PS360 ---
HIP RT 2-3V W/PELVIS IF PERFOR HISTORY: Follow-up fracture/ORIF S/P SURGICAL FU RT HIP ORDERING PHYSICIAN: BERTIN DIA MD PATIENT AGE: 86 years COMPARISON: 09/17/2016 FINDINGS: Status post ORIF right femoral neck fracture with [address] with good position. There is some sclerosis at the fracture site suggesting early healing. 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 Postsurgical changes lumbosacral junction. Prior left bipolar hip replacement. IMPRESSION: Healing right femoral neck fracture status post ORIF
== END ==
LOC: RAD 12:45
DX: M25.551 Pain in right hip (principal)

== ENCOUNTER → 2017-01-17 | Outpatient (CLI) | payer MEDICARE, OTHER ==
[~2017-01-17] MED LIST changes: +DETROL 1MG TAB1 MG PO
--- NOTE | 2017-01-17 13:28 | RADIOLOGY REPORT PS360 ---
HIP RT 2-3V W/PELVIS IF PERFOR HISTORY: POST OPERATIVE F/U ORDERING PHYSICIAN: BERTIN DIA MD PATIENT AGE: 87 years COMPARISON: 11/14/2016 FINDINGS: [address] stabilizing right femoral neck fracture with sclerosis at fracture site consistent with healing. There is good alignment. Mild osteoarthritic changes are present in the right hip. The bipolar left hip prosthesis present. IMPRESSION: Healing right femoral neck fracture status post pinning with good alignment
== END ==
LOC: RAD 10:28
DX: Z48.89 Encounter for other specified surgical aftercare (principal)

== ENCOUNTER 2017-02-28 08:30 | Outpatient (CLI) | payer MEDICARE, OTHER ==
[2017-02-28 09:25] LABS: GFR (ESTIMATED) 68 ML/MIN (59-)
[2017-02-28 10:30] VITALS: BP 144/65
[2017-02-28 11:00] VITALS: BP 144/70
[2017-02-28 11:20] VITALS: BP 155/70
== END 2017-02-28 12:10 | disposition home or self-care (01) ==
LOC: COP 08:30
PROVIDERS: Family Medicine
DX: L03.115 Cellulitis of right lower limb (principal)

== ENCOUNTER 2017-03-02 09:32 | Outpatient (CLI) | payer MEDICARE, OTHER ==
[2017-03-02 11:40] VITALS: BP 168/74
== END 2017-03-02 12:00 | disposition home or self-care (01) ==
LOC: COP 09:32
DX: L03.115 Cellulitis of right lower limb (principal)

== ENCOUNTER 2017-03-04 09:58 | Outpatient (CLI) | payer MEDICARE, OTHER ==
[2017-03-04 11:30] VITALS: BP 157/75
[2017-03-04 12:00] VITALS: BP 155/70
[2017-03-04 12:40] VITALS: BP 156/77
== END 2017-03-04 12:40 | disposition home or self-care (01) ==
LOC: COP 09:58
DX: L03.115 Cellulitis of right lower limb (principal)

== ENCOUNTER 2017-03-06 14:45 | Outpatient (CLI) | payer MEDICARE, OTHER ==
[2017-03-06 15:15] VITALS: BP 137/62
[2017-03-06 15:45] VITALS: BP 152/85
[2017-03-06 16:15] VITALS: BP 166/76
== END 2017-03-06 16:30 | disposition home or self-care (01) ==
LOC: COP 14:45
DX: L03.115 Cellulitis of right lower limb (principal)